=== PATIENT | male | born 1990 | race American Indian/Alaskan Native ===

== ENCOUNTER 2016-07-13 12:43 | Emergency (ER) | payer SELFPAY ==
[2016-07-13 12:55] VITALS: BP 149/75; PULSE 83; RESP 18; TEMP 97.9; O2SAT 100
--- NOTE | 2016-07-13 13:10 | ED PDOC ---
Upper Extremity Pain/Injury Time Seen by Provider: 07/13/16 13:05 Chief Complaint (Nursing): Finger,Hand,&Wrist Chief Complaint (Provider): finger injury History Per: Patient (26 y/o here for f/u of finger injury 06/15/2016. Patient had finger reduced at that time. Has no seen hand surgeon for evaluation of injury. Requests clearance to return to work.) Past Medical History Reviewed: Historical Data, Nursing Documentation, Vital Signs Vital Signs: Last Vital Signs Temp 97.9 F 07/13/16 12:52 Pulse 83 07/13/16 12:52 Resp 18 07/13/16 12:52 BP 149/75 07/13/16 12:52 Pulse Ox 100 07/13/16 12:52 - Medical History PMH: Bipolar Disorder - Family History Family History: States: Unknown Family Hx - Immunization History Hx Tetanus Toxoid Vaccination: No Hx Influenza Vaccination: No Hx Pneumococcal Vaccination: No - Home Medications Home Medications: Ambulatory Orders Medication Instructions Recorded Ibuprofen 800 mg PO TID #20 tab 08/06/15 oxyCODONE/Acetaminophen [Percocet 1 tab PO QID PRN #14 tab 08/06/15 5/325 mg Tab] Naproxen [Naprosyn] 500 mg PO Q12 PRN #20 tablet 06/15/16 - Allergies Allergies/Adverse Reactions: Allergies Allergy/AdvReac Type Severity Reaction Status Date / Time No Known Allergies Allergy Verified 07/13/15 03:43 Review of Systems ROS Statement: Except As Marked, All Systems Reviewed And Found Negative Physical Exam - Reviewed Nursing Documentation Reviewed: Yes Vital Signs Reviewed: Yes - Physical Exam Appears: Positive for: Well, Non-toxic, No Acute Distress Head Exam: Positive for: ATRAUMATIC, NORMAL INSPECTION, NORMOCEPHALIC Skin: Positive for: Normal Color, Warm, DRY Eye Exam: Positive for: EOMI, Normal appearance, PERRL ENT: Positive for: Normal ENT Inspection Neck: Positive for: Normal, Painless ROM Cardiovascular/Chest: Positive for: Regular Rate, Rhythm Respiratory: Positive for: CNT, Normal Breath Sounds Gastrointestinal/Abdominal: Positive for: Normal Exam, Bowel Sounds, Soft Back: Positive for: Normal Inspection Extremity: Positive for: Normal ROM, Other (?boutenniere deformity noted.) Neurologic/Psych: Positive for: Alert, Oriented - ECG O2 Sat by Pulse Oximetry: 100 - Progress ED Course And Treament: XRY: NO DISLOCATION/FX NOTED. DEFORMITY NOTED THIRD AND FOURTH DIGITS. PLACED IN FINGER SPLINT FOR ACUTELY INJURED DIGIT (3RD) ADVISED F/U WITH HAND SURGEON. Disposition - Clinical Impression Clinical Impression: Boutonniere deformity - Patient ED Disposition Is Patient to be Admitted: No - Disposition Referrals: Axel Greene MD [Staff Provider] - Disposition: Routine/Home Disposition Time: 13:36 Condition: FAIR Instructions: Tendon Rupture (ED), Finger Sprain (ED) Forms: [facility] ED School/Work Excuse
--- NOTE | 2016-07-13 14:32 | RAD ---
PROCEDURE: Left middle finger radiographs. HISTORY: finger injury COMPARISON: None. TECHNIQUE: AP radiograph of the left hand, as well as spot oblique and lateral images of left middle finger were obtained. FINDINGS: LEFT MIDDLE FINGER: Left middle finger normal, without fracture of focal lesion. Remainder of the left hand (as seen on the AP view) is grossly unremarkable. JOINTS: Normal. SOFT TISSUES: There is mild periarticular soft tissue swelling in the proximal interphalangeal joint of the 3rd digit. OTHER FINDINGS: None. IMPRESSION: No acute displaced fracture or dislocation. Mild periarticular soft tissue swelling in the proximal interphalangeal joint of the 3rd digit.
== END 2016-07-13 14:48 | disposition home or self-care (01) ==
LOC: H.ER 12:43
DX: M20.022 Boutonniere deformity of left finger(s) (principal)

== ENCOUNTER 2016-11-03 04:52 | Emergency (ER) | payer OTHER | END 2016-11-03 05:22 | disposition home or self-care (01) | LOC: H.EROB2 04:52 → H.ER 04:52 | DX: F19.10 Other psychoactive substance abuse, uncomplicated (principal); Z02.89 Encounter for other administrative examinations; Z00.8 Encounter for other general examination ==

== ENCOUNTER 2016-11-17 02:59 | Inpatient (IN) | payer OTHER ==
[2016-11-17 03:27] VITALS: O2SAT 100
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
[2016-11-17 04:44] LABS: BASO # 0.1 K/uL (0.0-0.2); BASO % 0.7 % (0.0-2.0); EOS % 0.1 % (0.0-4.0); HEMOGLOBIN 15.9 g/dL (12.0-18.0); LYMPH # 2.7 K/uL (1.0-4.3); MEAN CELL VOLUME 94.2 fl (80.0-94.0); MEAN CORPUSCULAR HEMOGLOBIN 32.2 pg (27.0-31.0); MEAN CORPUSCULAR HGB CONC 34.2 g/dL (33.0-37.0); MEAN PLATELET VOLUME 10.4 fl (7.2-11.7); MONO # 0.3 K/uL (0.0-0.8); MONO % 4.3 % (0.0-10.0); NEUT # 4.6 K/uL (1.8-7.0); NEUT % 59.9 % (50.0-75.0); RBC 4.95 Mil/uL (4.40-5.90); WHITE BLOOD COUNT 7.7 K/uL (4.8-10.8)
[2016-11-17 04:52] LABS: ALB/GLOB RATIO 1.4 (1.0-2.1); ALBUMIN 4.8 g/dL (3.5-5.0); ALT/SGPT 41 U/L (21-72); AST/SGOT 24 U/L (17-59); BLOOD UREA NITROGEN 10 mg/dl (9-20); CALCIUM 9.6 mg/dL (8.4-10.2); GFR AFRICAN-AMERICAN > 60; GFR NON-AFRICAN AMERICAN > 60
--- NOTE | 2016-11-17 08:56 | PCM.BM ---
Treatment Plan Problems - Problems identified on initial assessmt Altered Sleep Patterns Date Initiated: 11/17/16 Time Initiated: 16:05 Assessment reference: NA Status: Active Priority: 2 Hopelessnes/helplessness Date Initiated: 11/17/16 Time Initiated: 16:07 Assessment reference: NA Status: Active Priority: 1 Treatment assets and liabiliti Patient Assests: cooperative, motivated, self-reliant, physically healthy Patient Liabilities: substance abuse, legal issue, auditory impairment - Milieu Protocol Maintain good personal hygiene: daily Encourage regular showers, daily Remind patient to perform daily oral care, daily Assist patient to perform ADL's, every shift Encourage regular showers, every shift Remind patient to perform daily oral care, every shift Assist patient to perform ADL's Maintain personal safety: daily Educate patient to report safety concerns to staff, daily Monitor environment for contraband/sharps, every shift Educate patient to report safety concerns to staff, every shift Monitor environment for contraband/sharps Medication safety: Monitor for expected outcome, potential side effects: daily, Assess barriers to learning: daily, Assess readiness for medication education: daily Milieu Narrative: admit to 3np for safety and observation gather collateral information provide supportive therapy adjust medications- start risperdal for mood/psychosis disposition planning hospitalist consult Family Contact Family involvement: Family/SO is involved Family contact: Patient agrees to contact, Family has been contacted by patient , Telephone contact initiated by staff Family contact name: Sandra Jimenes Family contacted how many times per week?: 2 Family contact comment: [phone] Discharge/Continuing Care - Treatment Team Participation Patient/Family/SO Statement: admit to 3np for safety and observation gather collateral information provide supportive therapy adjust medications- start risperdal for mood/psychosis disposition planning hospitalist consult
[2016-11-17 09:10] LABS: BARBITURATES, UR NEGATIVE (NEGATIVE); BENZODIAZEPINES, UR POSITIVE (NEGATIVE); OPIATES, UR NEGATIVE (NEGATIVE); PHENCYCLIDINE, UR NEGATIVE (NEGATIVE)
--- NOTE | 2016-11-17 09:37 | CARD ---
APPROVED REPORT EKG Measurement Heart [id number] HI [id number] <Conclusion> Normal sinus rhythm with sinus arrhythmia Voltage criteria for left ventricular hypertrophy Early repolarization Abnormal ECG
[2016-11-17] MEDS ORDERED: Alum-Mag Hydrox-Simethicone Susp (30 mL) PO PRN (12:18)
[2016-11-17] MEDS ORDERED: Magnesium Hydroxide Susp 30 ml UD PO PRN (12:18)
[2016-11-17] MEDS ORDERED: DiphenhydrAMINE 50 mg/ml Inj IM PRN (12:18)
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
--- NOTE | 2016-11-18 13:44 | PCM.PYCHPN ---
Psychiatric Progress Note - Psychiatric Progress Note Patient seen today, length of contact: in treatment team Patient Chief Complaint: i am tired Problems Identified/Issues Discussed: pt slept well with seroquel. no c/o voices today. asking to start and antidepressant. outside of feeling tired, no c/o side effects with meds Medication Change: Yes Medical Record Reviewed: Yes Mental Status Examination - Cognitive Function Orientation: Person, Place, Situation, Time Memory: Intact Attention: WNL Concentration: Poor Association: WNL Fund of Knowledge: WNL Decription of patient's judgement and insights: fair - Mood Mood: Depressed - Affect Affect: Blunted - Speech Speech: Soft - Formal Thought Process Formal Thought Process: Paranoia, Loosening of associations Psychotic Thoughts and Behaviors: denies any a/v hallucinations - Suicidal Ideation Suicidal Ideation: No - Homicidal Ideation Homicidal Ideation: No Goal/Treatment Plan - Goal/Treatment Plan Need for Continued Stay: Remain at risks for inpatient hospitalization, Severe functional impairment Progress Toward Problem(s) and Goals/Treatment Plan: psychosis unspecified, mdma abuse zoloft for depression seroquel for psychosis/sleep encourage participation in groups disposition planning Estimated Date of D/C: 11/22/16
--- NOTE | 2016-11-19 12:05 | PCM.PYCHPN ---
Psychiatric Progress Note - Psychiatric Progress Note Patient seen today, length of contact: discussed with team Patient Chief Complaint: when can i go Problems Identified/Issues Discussed: pt reports he's hearing voices still at night, sleep not as good last night. more visibile in the am, not sedated during the day. he is asking about leaving the hospital. Medication Change: Yes Medical Record Reviewed: Yes Mental Status Examination - Cognitive Function Orientation: Person, Place, Situation, Time Memory: Intact Attention: WNL Concentration: Poor Association: WNL Fund of Knowledge: WNL Decription of patient's judgement and insights: fair - Mood Mood: Depressed - Affect Affect: Blunted - Speech Speech: Soft - Formal Thought Process Formal Thought Process: Paranoia, Loosening of associations Psychotic Thoughts and Behaviors: denies any a/v hallucinations - Suicidal Ideation Suicidal Ideation: No - Homicidal Ideation Homicidal Ideation: No Goal/Treatment Plan - Goal/Treatment Plan Need for Continued Stay: Remain at risks for inpatient hospitalization, Severe functional impairment Progress Toward Problem(s) and Goals/Treatment Plan: psychosis unspecified, mdma abuse zoloft for depression seroquel for psychosis/sleep- increase to 100mg hs encourage participation in groups disposition planning Estimated Date of D/C: 11/22/16
--- NOTE | 2016-11-20 11:24 | PCM.PYCHPN ---
Psychiatric Progress Note - Psychiatric Progress Note Patient seen today, length of contact: discussed with team Patient Chief Complaint: i am doing better Problems Identified/Issues Discussed: pt denies any auditory hallucinations. has improved sleep. denies medication side effects. visible in the milieu. Medication Change: No Medical Record Reviewed: Yes Mental Status Examination - Cognitive Function Orientation: Person, Place, Situation, Time Memory: Intact Attention: WNL Concentration: Poor Association: WNL Fund of Knowledge: WNL Decription of patient's judgement and insights: fair - Mood Mood: Depressed - Affect Affect: Blunted - Speech Speech: Soft - Formal Thought Process Formal Thought Process: Paranoia, Loosening of associations Psychotic Thoughts and Behaviors: denies any a/v hallucinations - Suicidal Ideation Suicidal Ideation: No - Homicidal Ideation Homicidal Ideation: No Goal/Treatment Plan - Goal/Treatment Plan Need for Continued Stay: Remain at risks for inpatient hospitalization, Severe functional impairment Progress Toward Problem(s) and Goals/Treatment Plan: psychosis unspecified, mdma abuse seroquel for psychosis/sleep- continue 100mg hs encourage participation in groups disposition planning Estimated Date of D/C: 11/22/16
[2016-11-21 11:03] VITALS: RESP 18
--- NOTE | 2016-11-21 12:32 | PCM.PYCHPN ---
Psychiatric Progress Note - Psychiatric Progress Note Patient seen today, length of contact: discussed with team Patient Chief Complaint: can i go doc Problems Identified/Issues Discussed: pt denies any auditory hallucinations. still with improved sleep. denies medication side effects. visible in the milieu and laughing/joking with peers. Medication Change: No Medical Record Reviewed: Yes Mental Status Examination - Cognitive Function Orientation: Person, Place, Situation, Time Memory: Intact Attention: WNL Concentration: WNL Association: WN Fund of Knowledge: [facility] Decription of patient's judgement and insights: fair - Mood Mood: Neutral - Affect Affect: Broad - Speech Speech: Appropriate - Formal Thought Process Formal Thought Process: No Impairment Psychotic Thoughts and Behaviors: denies any a/v hallucinations - Suicidal Ideation Suicidal Ideation: No - Homicidal Ideation Homicidal Ideation: No Goal/Treatment Plan - Goal/Treatment Plan Need for Continued Stay: Remain at risks for inpatient hospitalization, Severe functional impairment Progress Toward Problem(s) and Goals/Treatment Plan: psychosis unspecified, mdma abuse seroquel for psychosis/sleep- continue 100mg hs encourage participation in groups disposition planning Estimated Date of D/C: 11/22/16
[2016-11-22 09:05] VITALS: BP 128/58; PULSE 58; TEMP 97.2
--- NOTE | 2016-11-22 14:49 | PCM.PYCHDC ---
Mental Status Examination - Mental Status Examination Orientation: Person, Place, Situation, Time Memory: Intact Mood: Neutral Affect: Broad Speech: Appropriate Attention: WNL Concentration: WNL Association: WNL Fund of Knowledge: WNL Formal Thought Process: No Impairment Description of patient's judgement and insight: fair Psychotic Thoughts and Behaviors: denies any a/v hallucinations and thoughts are clear Suicidal Ideation: No Current Homicidal Ideation?: No Plan: pt denies any si/hi Discharge Summary - Discharge Note Reason for Hospitalization: pt c/o using mdma and hearing voices Psychiatric History (includes Medical, Family, Personal Hx): no previous history of treatment Consultations:: List each consultation separately and include: 1. Reason for request. 2. Findings. 3. Follow-up Consultations: seen by hospitalist Summary of Hospital Course include:: 1. Description of specific treatment plan utilized for patients during their course of treatmen. 2. Summarize the time- course for resolution of acute symptoms and/or regressed behaviors. 3. Describe issues identified and worked on during hospitalization. 4. Describe medication utilized. 5. Describe medical problems identified and treated. 6. Reassessment of suicide risk Summary of Hospital Course: 26 yo male, lliving in [place] with mother. 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 pt was on [employer] live chat and told his followers he was jumping into the river to kill himself. pt's cousin saw and came and jumped into the river to help pt. pt states he has been depressed and suicidal because of all the deaths of his friends in [facility] he states he uses a lot of silvia and cigarettes. he reports he used silvia day of admission. he reports he hears the voices of his friends and sees "ghosts" he report he cannot sleep at night and uses alcohol to help himself sleep. he reports he frequently thinks of suicide, but now he does not want to kill himself as he feels safe in the hospital. pt states he feels overwhelmed when he is in the community and around his friends or thinking about all the friends who have . pt was admitted to [facility] and oriented to the unit. pt was placed on routine safety protocols. pt was started on seroquel to target his psychotic symptoms. he tolerated the medications and had a resolution of his symptoms. he was attending groups and with a bright affect and with logical thoughts. he was agreeing to follow up with outpt providers. he was denying any suicidal or homicidal thoughts at the time of discharge. - Final Diagnosis (DSM 5) Condition upon Discharge: FAIR DSM 5: mdma abuse psychotic disorder unspecified Disposition: HOME/ ROUTINE Follow-up Treatment Plan: take medications as prescribed do not use alcohol, tobacco or other illicit substances call 911 if any suicidal or homicidal thoughts attend aa/na meetings daily follow up with aftercare appointments as directed. Prescriptions/Medication Reconciliation: Nicotine 21 mg/24 hr [Nicoderm Cq] 1 patch TD DAILY #30 patch QUEtiapine [Seroquel] 100 mg PO HS #15 tab - Smoking Cessation Smoking Cessation Medication prescribed: Yes - Antipsychotic Medications Pt discharged on 2 or more routine antipsychotic medications: No
== END 2016-11-22 12:40 | disposition home or self-care (01) | DRG 430 ==
LOC: H.ER 02:59 → H.ERHOLD 06:12 → H.PSYCH 08:45
PROVIDERS: ADMIT Psychiatry & Neurology Psychiatry; ATTEND Psychiatry & Neurology Psychiatry
PROC: GZHZZZZ Group Psychotherapy (ICD-10-PCS; principal; 2016-11-17)
PROC: GZ58ZZZ Individual Psychotherapy, Cognitive-Behavioral (ICD-10-PCS; 2016-11-17)
DX: F25.9 Schizoaffective disorder, unspecified (principal); R45.851 Suicidal ideations; F23 Brief psychotic disorder; F16.10 Hallucinogen abuse, uncomplicated; F10.129 Alcohol abuse with intoxication, unspecified; Y90.6 Blood alcohol level of 120-199 mg/100 ml; F17.210 Nicotine dependence, cigarettes, uncomplicated

== ENCOUNTER 2016-12-26 04:18 | Emergency (ER) | payer OTHER ==
[2016-12-26 04:32] VITALS: BMI 23.7
--- NOTE | 2016-12-26 04:43 | ED PDOC ---
HPI: Psych/Substance Abuse Time Seen by Provider: 12/26/16 04:24 Chief Complaint (Provider): "Nobody cares about me I want to " Modifying Factor(s): Alcohol, Marijuana Additional Complaint(s): Jaiden Jimenes, a 26 year old male, presents to the ED on his own stating "nobody cares about me, I want to ". Per family member, the [place] the [place] alcohol. Patient unable to participate in history taking at this time. Past Medical History Reviewed: Historical Data, Nursing Documentation, Vital Signs - Medical History PMH: Bipolar Disorder, Depression Denies: Diabetes, Hepatitis, HIV, HTN, Chronic Kidney Disease, Seizures, Sexually Transmitted Disease - Surgical History Surgical History: No Surg Hx - Family History Family History: States: Unknown Family Hx - Immunization History Hx Tetanus Toxoid Vaccination: No Hx Influenza Vaccination: No Hx Pneumococcal Vaccination: No - Home Medications Home Medications: Ambulatory Orders Medication Instructions Recorded Nicotine 21 mg/24 hr [Nicoderm Cq] 1 patch TD DAILY #30 patch 11/22/16 QUEtiapine [Seroquel] 100 mg PO HS #15 tab 11/22/16 - Allergies Allergies/Adverse Reactions: Allergies Allergy/AdvReac Type Severity Reaction Status Date / Time No Known Allergies Allergy Verified 12/26/16 04:46 Review of Systems ROS Statement: Except As Marked, All Systems Reviewed And Found Negative Psych: Negative for: Suicidal ideation Physical Exam - Reviewed Nursing Documentation Reviewed: Yes Vital Signs Reviewed: Yes - Physical Exam Appears: Positive for: Non-toxic, Uncomfortable Head Exam: Positive for: ATRAUMATIC, NORMAL INSPECTION, NORMOCEPHALIC Skin: Positive for: Normal Color, Warm, Dry. Negative for: Rash Eye Exam: Positive for: Normal appearance, EOMI, PERRL. Negative for: Nystagmus ENT: Positive for: Normal ENT Inspection Neck: Positive for: Normal, Painless ROM, Supple Cardiovascular/Chest: Positive for: Regular Rate, Rhythm, Chest Non Tender. Negative for: Tachycardia Respiratory: Positive for: Normal Breath Sounds. Negative for: Rales, Rhonchi, Wheezing, Respiratory Distress Gastrointestinal/Abdominal: Positive for: Normal Exam, Bowel Sounds, Soft. Negative for: Tenderness, Guarding, Rebound Back: Positive for: Normal Inspection. Negative for: L CVA Tenderness, R CVA Tenderness Extremity: Positive for: Normal ROM. Negative for: Tenderness, Deformity, Swelling Neurologic/Psych: Positive for: Alert, Oriented Medical Decision Making Medical Decision Makin Initial Impression: Drug and Alcohol Abuse Initial Plan: * Alcohol Serum * Drug Screen * Ativan 2mg IM * Haldol 5mg IM * 1:1 obs * Accucheck * Restraint * Reevaluation Scribe~Attestation Documented by Chelo Dill acting as a scribe for Maximo Padilla MD. Provider~Attestation: All medical record entries made by the Scribe were at my direction and personally dictated by me. I have reviewed the chart and agree that the record accurately reflects my personal performance of the history, physical exam, medical decision making, and the department course for this patient. I have also personally directed, reviewed, and agree with the discharge instructions and disposition. ED OBSERVATION Date of observation admission: 12/26/16 Time of observation admission: 16:35 - Observation admission statement Patient is being placed in observation because:: Pending sobriety. - Goals of Observation Goals of observation are:: sobriety. - Progress Note Progress Note: 12/26/16 06:07 Patient is resting comfortably. 12/26/16 06:51 Pt. resting. Will sign out to day team pending sobriety and crisis eval. Disposition - Clinical Impression Clinical Impression: Alcohol abuse with intoxication, Substance abuse - Disposition Disposition: Transfer of Care Disposition Time: 07:00 Condition: STABLE Patient Signed Over To: Jennie Wright Handoff Comments: pending sobriety and crisis eval
--- NOTE | 2016-12-26 07:20 | ED PDOC ---
- ECG O2 Sat by Pulse Oximetry: 98 Medical Decision Making Medical Decision Makin:00 Patient signed over to me by Dr. Maximo Padilla MD pending drug screen, sobriety, and crisis evaluation. Scribe Attestation: Documented by Lori Mendoza, acting as a scribe for Jennie Wright MD. Provider Scribe Attestation: All medical record entries made by the Scribe were at my direction and personally dictated by me. I have reviewed the chart and agree that the record accurately reflects my personal performance of the history, physical exam, medical decision making, and the department course for this patient. I have also personally directed, reviewed, and agree with the discharge instructions and disposition. 11.15 a - cleared by psych for outpatient followup. Disposition Doctor Will See Patient In The: Office Counseled Patient/Family Regarding: Diagnosis, Need For Followup, Rx Given - Clinical Impression Clinical Impression: Alcohol abuse with intoxication, Substance abuse - POA Present On Arrival: None - Disposition Referrals: [facility] [Outside] [facility] [Outside] Disposition: Routine/Home Disposition Time: 11:15 Condition: STABLE Additional Instructions: FOR MENTAL HEALTH ASSISTANCE FOLLOW UP AT: [facility] [address] [place] [address] FOR SUBSTANCE ABUSE SERVICES FOLLOW UP AT: [facility] [phone] Instructions: Polysubstance Abuse (ED) Forms: [employer] ([employer])
[2016-12-26 11:56] VITALS: BP 117/83; PULSE 64; RESP 15; TEMP 98.3; O2SAT 100
== END 2016-12-26 11:56 | disposition home or self-care (01) ==
LOC: H.ER 04:18
DX: F10.129 Alcohol abuse with intoxication, unspecified (principal); F19.10 Other psychoactive substance abuse, uncomplicated; F31.9 Bipolar disorder, unspecified
CPT/HCPCS: 80320; 82948; 96372; 99285; J1630; J2060

== ENCOUNTER 2017-01-07 03:24 | Emergency (ER) | payer OTHER ==
[2017-01-07 03:37] VITALS: BMI 27.1
[2017-01-07 03:40] VITALS: BP 135/90; PULSE 100; RESP 18; TEMP 98; O2SAT 98
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
== END 2017-01-07 04:34 | disposition home or self-care (01) ==
LOC: H.ER 03:24
DX: F43.20 Adjustment disorder, unspecified (principal)

== ENCOUNTER 2017-02-02 18:02 | Observation (INO) | payer OTHER ==
[2017-02-02 18:02] VITALS: BMI 27.1
--- NOTE | 2017-02-02 18:47 | ED PDOC ---
HPI: Male Pain Time Seen by Provider: 02/02/17 18:23 Chief Complaint (Nursing): Male Genitourinary Chief Complaint (Provider): penile swelling History Per: Patient History/Exam Limitations: no limitations Onset/Duration Of Symptoms: Sudden Onset Current Symptoms Are (Timing): Still Present Quality Of Discomfort: Pressure Associated Symptoms: denies: Urinary Symptoms Alleviating Factors: None Additional Complaint(s): 26yo male states received oral sex yesterday, today awoke with swelling to the ventral portion of the penis. Denies pain to area, discharge, ulcerations or concern for STD. Patient is uncircumscised, no prior issues w foreskin or retracting foreskin. Past Medical History Reviewed: Historical Data, Nursing Documentation, Vital Signs Vital Signs: Last Vital Signs Temp 97.0 F L 02/02/17 18:07 Pulse 110 H 02/02/17 18:07 Resp 16 02/02/17 18:07 BP 132/75 02/02/17 18:07 Pulse Ox 99 02/02/17 18:07 - Medical History PMH: Bipolar Disorder, Depression Denies: Diabetes, Hepatitis, HIV, HTN, Chronic Kidney Disease, Seizures, Sexually Transmitted Disease - Family History Family History: States: Unknown Family Hx - Immunization History Hx Tetanus Toxoid Vaccination: No Hx Influenza Vaccination: No Hx Pneumococcal Vaccination: No - Home Medications Home Medications: Ambulatory Orders Medication Instructions Recorded Nicotine 21 mg/24 hr [Nicoderm Cq] 1 patch TD DAILY #30 patch 11/22/16 QUEtiapine [Seroquel] 100 mg PO HS #15 tab 11/22/16 - Allergies Allergies/Adverse Reactions: Allergies Allergy/AdvReac Type Severity Reaction Status Date / Time No Known Allergies Allergy Verified 01/07/17 03:37 Review of Systems ROS Statement: Except As Marked, All Systems Reviewed And Found Negative Constitutional: Negative for: Fever, Chills Cardiovascular: Negative for: Chest Pain, Palpitations Gastrointestinal: Negative for: Nausea, Vomiting Genitourinary Male: Positive for: Other (penile swelling). Negative for: Dysuria, Frequency, Incontinence, Scrotal Pain, Rash, Penile Pain Musculoskeletal: Negative for: Neck Pain Skin: Negative for: Rash, Lesions, Jaundice Neurological: Negative for: Weakness, Numbness Physical Exam - Reviewed Nursing Documentation Reviewed: Yes Vital Signs Reviewed: Yes - Physical Exam Appears: Positive for: Well, Non-toxic, No Acute Distress Head Exam: Positive for: ATRAUMATIC Skin: Positive for: Normal Color, Warm, DRY Cardiovascular/Chest: Negative for: Tachycardia Respiratory: Negative for: Respiratory Distress Gastrointestinal/Abdominal: Positive for: Soft Male Genital Exam: Positive for: other (penile foreskin edema to vental portion , +able to advance foreskin over glans and fully retract foreskin, nontender, no discharge at penile meatus). Negative for: bleeding, erythema, lesions, scrotum tenderness (R), scrotum tenderness (L) Back: Positive for: Normal Inspection Extremity: Positive for: Normal ROM Neurologic/Psych: Positive for: Alert, Oriented. Negative for: Motor/Sensory Deficits - ECG O2 Sat by Pulse Oximetry: 99 Medical Decision Making Medical Decision Making: sugar placed on foreskin for osmotic therapy of likely partial paraphimosis. Ice also applied to area. Explained definitive therapy following would be circumcision to prevent recurrence. Disposition - Clinical Impression Clinical Impression: Foreskin swelling - Disposition Disposition Time: 18:51 Forms: [employer] ([place]) Patient Signed Over To: Tristan Kirk Handoff Comments: pending re-eval of penis, dispo
[2017-02-02] MEDS ORDERED: Piperacill/Tazo 3.375gm in Dex 3.375 GM/50 ML BAG IVPB STA (20:32)
--- NOTE | 2017-02-02 20:35 | ED PDOC ---
- Laboratory Results Result Diagrams: 02/02/17 20:57 02/02/17 20:57 - ECG O2 Sat by Pulse Oximetry: 99 (RA) Pulse Ox Interpretation: Normal Medical Decision Making Medical Decision Making: Time: 1899 --Patient was endorsed to provider by Dr. Froilan Arce III. Pending re- evaluation and final disposition. Time: 2014 --Upon re-evaluation, patient shows no improvement with swelling. --Discussed case with Dr. Vazquez who advised to admit patient for IV antibiotic treatment and further evaluation. --Dr. Ramsey, hospitalist was also informed of case. Clinical Impression: Pineal foreskin cellulitis Scribe Attestation: Documented by Yee Cardona, acting as a scribe for Tristan Kirk MD. Provider Scribe Attestation: All medical record entries made by the Scribe were at my direction and personally dictated by me. I have reviewed the chart and agree that the record accurately reflects my personal performance of the history, physical exam, medical decision making, and the department course for this patient. I have also personally directed, reviewed, and agree with the discharge instructions and disposition. Disposition Discussed With DrAlexandra: Eriberto Ramsey (Dr Vazquez) - Clinical Impression Clinical Impression: Foreskin swelling, Cellulitis - POA Present On Arrival: None - Disposition Disposition: Hospitalized as Observation Patient Disposition Time: 22:00 Condition: STABLE
[2017-02-02 21:02] LABS: BASO # 0.2 K/uL (0.0-0.2); BASO % 2.2 % (0.0-2.0); EOS # 0.1 K/uL (0.0-0.7); EOS % 0.8 % (0.0-4.0); HEMATOCRIT 45.4 % (35.0-51.0); LYMPH # 2.3 K/uL (1.0-4.3); LYMPH % 31.9 % (20.0-40.0); MEAN CELL VOLUME 91.8 fl (80.0-94.0); MEAN CORPUSCULAR HEMOGLOBIN 31.1 pg (27.0-31.0); MEAN CORPUSCULAR HGB CONC 33.8 g/dL (33.0-37.0); MEAN PLATELET VOLUME 9.6 fl (7.2-11.7); MONO # 0.6 K/uL (0.0-0.8); MONO % 8.7 % (0.0-10.0); NEUT # 4.1 K/uL (1.8-7.0); NEUT % 56.4 % (50.0-75.0); RED CELL DISTRIBUTION WIDTH 13.3 % (11.5-14.5); WHITE BLOOD COUNT 7.3 K/uL (4.8-10.8)
[2017-02-02 21:12] LABS: RBC URINE 5 /hpf (0-3); URINE BACTERIA RARE (<OCC); URINE BILIRUBIN NEGATIVE (NEGATIVE); URINE BLOOD NEGATIVE (NEGATIVE); URINE COLOR YELLOW (YELLOW); URINE GLUCOSE (UA) NEG (Normal); URINE KETONE NEGATIVE (NEGATIVE); URINE LEUKOCYTE ESTERASE NEG Leu/uL (Negative); URINE PROTEIN 100 mg/dL (NEGATIVE); URINE UROBILINOGEN 0.2-1.0 mg/dL (0.2-1.0); WBC URINE 2 /hpf (0-5)
[2017-02-02 21:21] LABS: BLOOD UREA NITROGEN 13 mg/dl (9-20); CALCIUM 9.8 mg/dL (8.4-10.2); CARBON DIOXIDE 28 mmol/L (22-30); CHLORIDE 103 mmol/L (98-107); GFR AFRICAN-AMERICAN > 60; GLUCOSE,RANDOM 84 mg/dL (75-110); POTASSIUM 3.9 MMOL/L (3.6-5.0); SODIUM 142 mmol/l (132-148)
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
[2017-02-03 00:22] VITALS: RESP 20
[2017-02-03] MEDS: Piperacill/Tazo 3.375gm in Dex 3.375 GM/50 ML BAG IVPB SCH ×2 (03:48→10:33)
[2017-02-03] MEDS ORDERED: Piperacillin/Tazobact 3.375 GM in Sodium Chloride 0.9% 100 ML IVPB SCH (04:00)
[2017-02-03 08:08] VITALS: BP 144/84; PULSE 51; TEMP 97.6; O2SAT 100
[2017-02-03] MEDS ORDERED: Venlafaxine 75 mg ER Cap PO SCH (09:00)
--- NOTE | 2017-02-03 13:00 | CP.PCM.DIS ---
Provider - Provider Date of Admission: 02/02/17 21:12 Attending physician: Eriberto Ramsey Primary care physician: none Consults: Urology consult 02/03/17 00:42 Social Work Referral Routine Comment: protocol Physician Instructions: Reason For Exam: smoking cessation Time Spent in preparation of Discharge (in minutes): 15 Hospital Course - Lab Results Lab Results: Most Recent Lab Values WBC 7.3 K/uL (4.8-10.8) 02/02/17 20:57 RBC 4.94 Mil/uL (4.40-5.90) 02/02/17 20:57 Hgb 15.3 g/dL (12.0-18.0) 02/02/17 20:57 Hct 45.4 % (35.0-51.0) 02/02/17 20:57 MCV 91.8 fl (80.0-94.0) D 02/02/17 20:57 MCH 31.1 pg (27.0-31.0) H 02/02/17 20:57 MCHC 33.8 g/dL (33.0-37.0) 02/02/17 20:57 RDW 13.3 % (11.5-14.5) 02/02/17 20:57 Plt Count 171 K/uL (130-400) 02/02/17 20:57 MPV 9.6 fl (7.2-11.7) 02/02/17 20:57 Neut % (Auto) 56.4 % (50.0-75.0) 02/02/17 20:57 Lymph % (Auto) 31.9 % (20.0-40.0) 02/02/17 20:57 [place] % (Auto) 8.7 % (0.0-10.0) 02/02/17 20:57 Eos % (Auto) 0.8 % (0.0-4.0) 02/02/17 20:57 Baso % (Auto) 2.2 % (0.0-2.0) H 02/02/17 20:57 Neut # 4.1 K/uL (1.8-7.0) 02/02/17 20:57 Lymph # 2.3 K/uL (1.0-4.3) 02/02/17 20:57 [place] # 0.6 K/uL (0.0-0.8) 02/02/17 20:57 Eos # 0.1 K/uL (0.0-0.7) 02/02/17 20:57 Baso # 0.2 K/uL (0.0-0.2) 02/02/17 20:57 Sodium 142 mmol/l (132-148) 02/02/17 20:57 Potassium 3.9 MMOL/L (3.6-5.0) 02/02/17 20:57 Chloride 103 mmol/L (98-107) 02/02/17 20:57 Carbon Dioxide 28 mmol/L (22-30) 02/02/17 20:57 Anion Gap 15 (10-20) 02/02/17 20:57 BUN 13 mg/dl (9-20) 02/02/17 20:57 Creatinine 0.9 mg/dL (0.8-1.5) 02/02/17 20:57 Est GFR ( Amer) > 60 02/02/17 20:57 Est GFR (Non-Af Amer) > 60 02/02/17 20:57 Random Glucose 84 mg/dL (75-110) 02/02/17 20:57 Lactic Acid 0.7 MMOL/L (0.7-2.1) 02/02/17 20:57 Calcium 9.8 mg/dL (8.4-10.2) 02/02/17 20:57 Urine Color Yellow (YELLOW) 02/02/17 20:57 Urine Clarity Cloudy (Clear) 02/02/17 20:57 Urine pH 8.0 (5.0-8.0) 02/02/17 20:57 Ur Specific [place] 1.027 (1.003-1.030) 02/02/17 20:57 Urine Protein 100 mg/dL (NEGATIVE) 02/02/17 20:57 Urine Glucose (UA) Neg mg/dL (Normal) 02/02/17 20:57 Urine Ketones Negative mg/dL (NEGATIVE) 02/02/17 20:57 Urine Blood Negative (NEGATIVE) 02/02/17 20:57 Urine Nitrate Negative (NEGATIVE) 02/02/17 20:57 Urine Bilirubin Negative (NEGATIVE) 02/02/17 20:57 Urine Urobilinogen 0.2-1.0 mg/dL (0.2-1.0) 02/02/17 20:57 Ur Leukocyte Esterase Neg [place]/uL (Negative) 02/02/17 20:57 Urine RBC (Auto) 5 /hpf (0-3) H 02/02/17 20:57 Urine Microscopic WBC 2 /hpf (0-5) 02/02/17 20:57 Urine Bacteria Rare (<OCC) 02/02/17 20:57 - Hospital Course Hospital Course: 26 years old male came in after receiving Oral Sex one day ago and woke up with swelling to the ventral portion of the penis with no significant pain. He referred no Discharge, dysuria, urinary frequency, no fever nor abdominal pains. He is uncircumcised but because of the swelling the foreskin which is in retraction cannot be extended. Patient was placed under observation in med/surg and urology was consulted. He was started on IV zosyn empirically . Elevation of penis with cold compresses applied with improvement of swelling and paraphymosis resolved Patient to be discharged home in stable conditions. 1. Cellulitis of the Prepuce ruled out 2.Mild Paraphimosos of the Penile foreskin urology consulted resolved 3. Depression continue Effixer/ Seroquel 4. Alcohol abuse Thiamine, folic Acid Discharge Exam - Head Exam Head Exam: ATRAUMATIC, NORMAL INSPECTION, NORMOCEPHALIC - Eye Exam Eye Exam: EOMI, Normal appearance, PERRL Pupil Exam: NORMAL ACCOMODATION - ENT Exam ENT Exam: Mucous Membranes Moist, Normal Exam - Neck Exam Neck exam: Full Rom, Normal Inspection - Respiratory Exam Respiratory Exam: Clear to PA & Lateral, NORMAL BREATHING PATTERN. absent: Rales, Rhonchi, Wheezes - Cardiovascular Exam Cardiovascular Exam: REGULAR RHYTHM, RRR, +S1, +S2. absent: JVD - GI/Abdominal Exam GI & Abdominal Exam: Normal Bowel Sounds, Soft. absent: Distended, Guarding, Rebound, Tenderness - Rectal Exam Rectal Exam: Deferred - Exam Exam: absent: Circumcision, Scrotal Swelling, Testicular Tenderness - Extremities Exam Extremities exam: normal capillary refill, normal inspection, pedal pulses present - Back Exam Back exam: NORMAL INSPECTION. absent: muscle spasm, tenderness - Neurological Exam Neurological exam: Alert, CN II-XII Intact, Oriented x3, Reflexes Normal - Psychiatric Exam Psychiatric exam: Normal Affect, Normal Mood - Skin Skin Exam: Abrasion (left elbow), Dry, Normal Color, Warm Discharge Plan - Discharge Medications Prescriptions: Mupirocin 2% Ointment [Bactroban Ointment] 1 appl TP TID #1 tube - Follow Up Plan Condition: STABLE Disposition: HOME/ ROUTINE Patient education suggested?: Yes Instructions: Phimosis (ED) Additional Instructions: Follow up with Dr Vazquez this Tuesday. Return for any worsening or inability to retract foreskin to urinate. Continue to ice at home Referrals: Roger Vazquez MD [Medical Doctor] -
[2017-02-03] MEDS ORDERED: Bacitracin OINT 15GM TOP SCH (13:15)
[2017-02-03] MEDS: Enoxaparin 40 mg Syringe SC SCH ×2 (13:31→13:40)
== END 2017-02-03 15:20 | disposition home or self-care (01) ==
LOC: H.ER 18:02 → H.ERHOLD 21:12 → H.MEDSURG1 22:06
PROVIDERS: ADMIT Internal Medicine; ATTEND Internal Medicine
DX: N47.2 Paraphimosis (principal); F32.9 Major depressive disorder, single episode, unspecified; F10.10 Alcohol abuse, uncomplicated; F17.200 Nicotine dependence, unspecified, uncomplicated
CPT/HCPCS: 80048; 81003; 83605; 85025; 87040; 99284; G0378; J1885; J2543

== ENCOUNTER 2017-03-10 00:28 | Emergency (ER) | payer SELFPAY ==
[2017-03-10 00:29] VITALS: BMI 27.1
[2017-03-10 00:54] VITALS: O2SAT 98
--- NOTE | 2017-03-10 01:17 | ED PDOC ---
HPI: Psych/Substance Abuse Time Seen by Provider: 03/10/17 00:42 Chief Complaint (Nursing): Psychiatric Evaluation Chief Complaint (Provider): Psychiatric Evaluation History Per: Patient History/Exam Limitations: no limitations Onset/Duration Of Symptoms: Days (x1) Current Symptoms Are (Timing): Still Present Additional Complaint(s): Jaiden Jimenes is a 26 y/o male with a past medical history of substance abuse and psychotic disorder who was brought in by HPD after he was extremely agitated and aggressive. Patient is well known to this provider for multiple ED visits. Patient is requesting inpatient admission to psychiatric unit. PMD: Non-[facility] Provider Past Medical History Reviewed: Historical Data, Nursing Documentation, Vital Signs Vital Signs: Last Vital Signs Temp 98 F 03/10/17 00:49 Pulse 116 H 03/10/17 00:49 Resp 16 03/10/17 00:49 BP 117/77 03/10/17 00:49 Pulse Ox 98 03/10/17 00:49 - Medical History PMH: Bipolar Disorder, Depression Denies: Diabetes, Hepatitis, HIV, HTN, Chronic Kidney Disease, Seizures, Sexually Transmitted Disease - Family History Family History: States: Unknown Family Hx - Social History Current smoker - smoking cessation education provided: Yes (Heavy smoker) Alcohol: Other (A few days per week) Drugs: Cannabis, Methamphetamine (MDMA), Other (PCP) - Immunization History Hx Tetanus Toxoid Vaccination: No Hx Influenza Vaccination: No Hx Pneumococcal Vaccination: No - Home Medications Home Medications: Ambulatory Orders Medication Instructions Recorded QUEtiapine [Seroquel] 100 mg PO HS #15 tab 11/22/16 Mupirocin 2% Ointment [Bactroban 1 appl TP TID #1 tube 02/02/17 Ointment] Venlafaxine [Effexor-XR] 75 mg PO DAILY 02/02/17 - Allergies Allergies/Adverse Reactions: Allergies Allergy/AdvReac Type Severity Reaction Status Date / Time No Known Allergies Allergy Verified 02/02/17 20:41 Review of Systems ROS Statement: Except As Marked, All Systems Reviewed And Found Negative Psych: Positive for: Other (Aggression) Physical Exam - Reviewed Nursing Documentation Reviewed: Yes Vital Signs Reviewed: Yes - Physical Exam Appears: Positive for: Well, Non-toxic, No Acute Distress Head Exam: Positive for: ATRAUMATIC, NORMAL INSPECTION, NORMOCEPHALIC Skin: Positive for: Normal Color, Warm, Dry Eye Exam: Positive for: EOMI, Normal appearance, PERRL Neck: Positive for: Normal, Painless ROM, Supple Cardiovascular/Chest: Positive for: Regular Rate, Rhythm. Negative for: Murmur Respiratory: Positive for: Normal Breath Sounds. Negative for: Respiratory Distress Gastrointestinal/Abdominal: Positive for: Normal Exam, Bowel Sounds, Soft. Negative for: Tenderness Back: Positive for: Normal Inspection. Negative for: L CVA Tenderness, R CVA Tenderness, Vertebral Tenderness Extremity: Positive for: Normal ROM. Negative for: Pedal Edema, Deformity Neurologic/Psych: Positive for: Alert, Oriented. Negative for: Motor/Sensory Deficits - Laboratory Results Result Diagrams: 03/10/17 01:15 03/10/17 01:15 - ECG O2 Sat by Pulse Oximetry: 98 (RA) Pulse Ox Interpretation: Normal Medical Decision Making Medical Decision Making: Time: 01:04 Initial Impression: 26 y/o male brought in for crisis evaluation Plan: --Alcohol serum --CMP --Drug screen, urine --Crisis evaluation --CBC w/ differential --Accucheck --Reevaluation Time: 02:25 Clinical Impression: Alcohol induced mood disorder, substance abuse Plan: --Labs reviewed and no clinically significant abnormalities were found. Patient was evaluated by crisis and is psychiatrically and medically stable for discharge. Counseling was provided and all questions were answered regarding diagnosis. There is agreement to discharge plan. Return if symptoms persist or worsen. Scribe Attestation: Documented by Virgil Hale acting as a scribe for Tristan Kirk MD. MD Jimibe Attestation: All medical record entries made by the Scribe were at my direction and personally dictated by me. I have reviewed the chart and agree that the record accurately reflects my personal performance of the history, physical exam, medical decision making, and the department course for this patient. I have also personally directed, reviewed, and agree with the discharge instructions and disposition. Disposition - Clinical Impression Clinical Impression: Alcohol-induced mood disorder, Substance abuse - Patient ED Disposition Is Patient to be Admitted: No Counseled Patient/Family Regarding: Studies Performed, Diagnosis - Disposition Disposition: Routine/Home Disposition Time: 02:25 Condition: STABLE Instructions: Mood Disorders (ED) Forms: [employer] (Haitian)
[2017-03-10 01:31] LABS: BASO # 0.1 K/uL (0.0-0.2); BASO % 0.9 % (0.0-2.0); EOS % 0.1 % (0.0-4.0); HEMATOCRIT 42.9 % (35.0-51.0); LYMPH # 2.4 K/uL (1.0-4.3); LYMPH % 38.3 % (20.0-40.0); MEAN CELL VOLUME 92.6 fl (80.0-94.0); MEAN CORPUSCULAR HEMOGLOBIN 30.4 pg (27.0-31.0); MEAN CORPUSCULAR HGB CONC 32.9 g/dL (33.0-37.0); MONO # 0.3 K/uL (0.0-0.8); MONO % 5.4 % (0.0-10.0); NEUT # 3.5 K/uL (1.8-7.0); NEUT % 55.3 % (50.0-75.0); NRBC % 0.1 % (0.0-0.0); RED CELL DISTRIBUTION WIDTH 13.4 % (11.5-14.5); WHITE BLOOD COUNT 6.3 K/uL (4.8-10.8)
[2017-03-10 01:41] LABS: ALB/GLOB RATIO 1.4 (1.0-2.1); ALCOHOL SERUM 244 mg/dl (0-10); ALKALINE PHOSPHATASE 37 U/L (38-126); ALT/SGPT 30 U/L (21-72); AST/SGOT 19 U/L (17-59); BILIRUBIN,TOTAL 0.4 mg/dl (0.2-1.3); BLOOD UREA NITROGEN 10 mg/dl (9-20); CALCIUM 9.2 mg/dL (8.4-10.2); CARBON DIOXIDE 26 mmol/L (22-30); CHLORIDE 109 mmol/L (98-107); GFR AFRICAN-AMERICAN > 60; GLUCOSE,RANDOM 89 mg/dL (75-110); POTASSIUM 3.6 MMOL/L (3.6-5.0); SODIUM 146 mmol/l (132-148); TOTAL PROTEIN 8.2 G/DL (6.3-8.2)
[2017-03-10 06:14] VITALS: BP 119/74; PULSE 84; RESP 17; TEMP 98.2
== END 2017-03-10 06:05 | disposition home or self-care (01) ==
LOC: H.ER 00:28
DX: F10.94 Alcohol use, unspecified with alcohol-induced mood disorder (principal); F19.10 Other psychoactive substance abuse, uncomplicated; F31.9 Bipolar disorder, unspecified; F17.200 Nicotine dependence, unspecified, uncomplicated

== ENCOUNTER 2017-05-04 10:33 | Emergency (ER) | payer OTHER, SELFPAY ==
[2017-05-04 10:33] VITALS: BMI 27.1
[2017-05-04 10:38] VITALS: BP 146/85; PULSE 94; RESP 20; TEMP 98.6; O2SAT 98
[2017-05-04] MEDS ORDERED: Oxycodone/Acetaminophen 5/325 mg Tab PO STA (11:27)
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
--- NOTE | 2017-05-04 12:16 | RAD ---
PROCEDURE: Right Foot Radiographs. HISTORY: trauma COMPARISON: None. FINDINGS: BONES: Normal. No fracture. JOINTS: Normal. SOFT TISSUES: Normal. OTHER FINDINGS: None. IMPRESSION: Normal right foot radiographs.
== END 2017-05-04 12:52 | disposition home or self-care (01) ==
LOC: H.ER 10:33
DX: S90.31XA Contusion of right foot, initial encounter (principal); S90.30XA Contusion of unspecified foot, initial encounter; W22.8XXA Striking against or struck by other objects, initial encounter; Y92.89 Other specified places as the place of occurrence of the external cause; F31.9 Bipolar disorder, unspecified

== ENCOUNTER 2017-05-10 03:32 | Emergency (ER) | payer SELFPAY ==
[2017-05-10 03:32] VITALS: BMI 27.1
[2017-05-10 03:54] VITALS: RESP 16; TEMP 98.7; O2SAT 100
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
[2017-05-10 05:56] VITALS: BP 154/98; PULSE 86
== END 2017-05-10 05:58 | disposition home or self-care (01) ==
LOC: H.ER 03:32
DX: K08.89 Other specified disorders of teeth and supporting structures (principal); H92.03 Otalgia, bilateral; F31.9 Bipolar disorder, unspecified

== ENCOUNTER 2017-06-30 22:58 | Emergency (ER) | payer SELFPAY ==
[2017-06-30 22:58] VITALS: BMI 27.1
[2017-06-30 23:06] VITALS: BP 144/95; PULSE 69; RESP 19; TEMP 98.2; O2SAT 98
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
== END 2017-07-01 02:00 ==
LOC: H.ER 22:58
DX: F43.20 Adjustment disorder, unspecified; T73.0XXA Starvation, initial encounter; F31.9 Bipolar disorder, unspecified; F17.210 Nicotine dependence, cigarettes, uncomplicated

== ENCOUNTER 2017-11-25 16:36 | Emergency (ER) | payer MEDICAID, OTHER, SELFPAY ==
[2017-11-25 16:36] VITALS: BMI 27.1
[2017-11-25 16:50] VITALS: BP 124/84; PULSE 86; RESP 18; TEMP 98.3; O2SAT 97
--- NOTE | 2017-11-25 17:30 | ED PDOC ---
HPI: CCC, URI, Sore Throat Time Seen by Provider: 11/25/17 16:50 Chief Complaint (Nursing): Abdominal Pain Chief Complaint (Provider): Nasal Congestion, Cough and Abdominal Pain History Per: Patient History/Exam Limitations: no limitations Onset/Duration Of Symptoms: Days (x1) Current Symptoms Are (Timing): Still Present Associated Symptoms: Cough, Sputum, Nasal Congestion. denies: Nausea, Vomiting , Diarrhea Additional Complaint(s): 27 year old male with no significant past medical history presents to the ED for nasal congestion, cough and headache onset yesterday associated clear sputum and lower abdominal pain. Patient reports he has an appetite but wanted to get checked out before he ate anything. As such, he has not consumed any food today. He denies hemoptysis, fever, chills, diarrhea, constipation, nausea , vomiting, urinary symptoms, sick contacts, travel, or any other medical complaints. PMD: none provided Past Medical History Reviewed: Historical Data, Nursing Documentation, Vital Signs Vital Signs: Last Vital Signs Temp 98.3 F 11/25/17 16:49 Pulse 86 11/25/17 16:49 Resp 18 11/25/17 16:49 BP 124/84 11/25/17 16:49 Pulse Ox 97 11/25/17 17:36 - Medical History PMH: Bipolar Disorder, Depression Denies: Diabetes, Hepatitis, HIV, HTN, Chronic Kidney Disease, Seizures, Sexually Transmitted Disease - Surgical History Surgical History: No Surg Hx - Family History Family History: States: Unknown Family Hx - Social History Current smoker - smoking cessation education provided: Yes (a little over a pack a day ) Ex-Smoker (has not smoked in the last 12 months): No Alcohol: Social Drugs: Denies - Immunization History Hx Tetanus Toxoid Vaccination: No Hx Influenza Vaccination: No Hx Pneumococcal Vaccination: No - Home Medications Home Medications: Ambulatory Orders Medication Instructions Recorded QUEtiapine [Seroquel] 100 mg PO HS #15 tab 11/22/16 Mupirocin 2% Ointment [Bactroban 1 appl TP TID #1 tube 02/02/17 Ointment] Venlafaxine [Effexor-XR] 75 mg PO DAILY 02/02/17 Naproxen [Naprosyn] 500 mg PO BID PRN #14 tab 05/04/17 Amoxicillin 500 mg PO BID #13 tablet 05/10/17 Ibuprofen [Motrin Tab] 1 tab PO Q6 PRN #20 tab 05/10/17 Oxymetazoline 0.05% [Oxymetazoline 2 spray NS Q12 PRN #1 bottle 11/25/17 HCl 30 Ml] - Allergies Allergies/Adverse Reactions: Allergies Allergy/AdvReac Type Severity Reaction Status Date / Time No Known Allergies Allergy Verified 06/30/17 23:06 Review of Systems ROS Statement: Except As Marked, All Systems Reviewed And Found Negative ENT: Positive for: Nose Congestion Respiratory: Positive for: Cough, Sputum (clear) Gastrointestinal: Positive for: Abdominal Pain (lower) Physical Exam - Reviewed Nursing Documentation Reviewed: Yes Vital Signs Reviewed: Yes - Physical Exam Appears: Positive for: Non-toxic, No Acute Distress Skin: Positive for: Warm, Dry Eye Exam: Positive for: EOMI, PERRL ENT: Positive for: Pharynx Is (clear), Other (boggy and erythematous nasal turbinates, no tonsolar erythema ). Negative for: Tonsillar Exudate Neck: Positive for: Painless ROM, Supple Cardiovascular/Chest: Positive for: Regular Rate, Rhythm. Negative for: Murmur Respiratory: Positive for: Normal Breath Sounds. Negative for: Accessory Muscle Use, Rales, Wheezing, Respiratory Distress Gastrointestinal/Abdominal: Positive for: Bowel Sounds (normoactive ), Soft, Tenderness (to palpation in the suprapubic region ), Other (mcburney's point tenderness, negative green's sign ). Negative for: Mass, Guarding, Rebound Back: Positive for: Normal Inspection. Negative for: L CVA Tenderness, R CVA Tenderness Extremity: Positive for: Normal ROM. Negative for: Deformity Lymphatic: Negative for: Adenopathy Neurologic/Psych: Positive for: Alert. Negative for: Motor/Sensory Deficits - ECG O2 Sat by Pulse Oximetry: 97 (RA) Pulse Ox Interpretation: Normal Medical Decision Making Medical Decision Making: Time: 17:12 Initial Impression: URI symptoms with abdominal pain with benign exam Initial Plan: --Obstructive series [RAD] --Bentyl 20 mg PO Obstructive series: NSBGP, no air fluid levels, no free air. Mild constipation. Chest xray demonstrates no infilt or eff DW pt findings and plan of care. Afrin nasal spray, rest, fluids, tobacco cessation, f/u clinic. Scribe Attestation: Documented by Taylor Hanks, acting as a scribe for Lesley Santizo MD Provider Scribe Attestation: All medical record entries made by the Scribe were at my direction and personally dictated by me. I have reviewed the chart and agree that the record accurately reflects my personal performance of the history, physical exam, medical decision making, and the department course for this patient. I have also personally directed, reviewed, and agree with the discharge instructions and disposition. Disposition - Clinical Impression Clinical Impression: Abdominal pain, URI (upper respiratory infection) Counseled Patient/Family Regarding: Studies Performed, Diagnosis, Need For Followup, Rx Given, Smoking Cessation - Disposition Referrals: [facility] [Outside] Disposition: Routine/Home Disposition Time: 17:53 Condition: STABLE Prescriptions: Oxymetazoline 0.05% [Oxymetazoline HCl 30 Ml] 2 spray NS Q12 PRN #1 bottle PRN Reason: Nasal congestion Instructions: Viral Upper Respiratory Infection, Adult (DC), Acute Abdomen ( Belly Pain), Adult (DC), Constipation, Adult (DC), Quitting Smoking for Teens and Young Adults Forms: [facility] ED School/Work Excuse
--- NOTE | 2017-11-25 18:11 | RAD ---
Date of service: 11/25/2017 PROCEDURE: Radiographs of the chest and abdomen (obstructive series) HISTORY: abd pain COMPARISON: No prior. TECHNIQUE: AP radiograph of the chest, with upright and supine radiographs of the abdomen. FINDINGS: CHEST: Lungs: Clear. Cardiovascular: Normal size heart. No pulmonary vascular congestion. Pleura: No pleural fluid. No pneumothorax. Other findings: None. ABDOMEN AND PELVIS: Bowel: Unremarkable bowel gas pattern. No evidence of mechanical obstruction. Free air: None. Bones: Unremarkable. Other findings: None. IMPRESSION: Unremarkable radiographs of chest and abdomen. No evidence of mechanical bowel obstruction. Concordant results with the preliminary interpretation rendered by the emergency department physician procedure.
== END 2017-11-25 18:07 | disposition home or self-care (01) ==
LOC: H.ER 16:36
DX: J06.9 Acute upper respiratory infection, unspecified (principal); F31.9 Bipolar disorder, unspecified; F17.210 Nicotine dependence, cigarettes, uncomplicated; K59.00 Constipation, unspecified

== ENCOUNTER 2018-01-21 03:55 | Emergency (ER) | payer MEDICAID ==
[2018-01-21 03:55] VITALS: BMI 27.1
[2018-01-21 04:13] VITALS: BP 130/89; PULSE 89; RESP 18; TEMP 98.6; O2SAT 98
== END 2018-01-21 04:30 | disposition left against medical advice (07) ==
LOC: H.ER 03:55
DX: Z02.89 Encounter for other administrative examinations (principal)

== ENCOUNTER 2018-02-03 03:34 | Emergency (ER) | payer MEDICAID ==
[2018-02-03 03:35] VITALS: BMI 27.1
[2018-02-03 03:47] VITALS: BP 128/82; PULSE 86; RESP 17; TEMP 98.8; O2SAT 99
[2018-02-03] MEDS ORDERED: Tdap Vaccine 0.5 ml Vial (10-64 yrs) IM ONE ×2 (04:33→04:41)
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
[2018-02-03] MEDS ORDERED: Rabies Immune Globulin 150 INTLU/ML VIAL IM ONE (06:02)
== END 2018-02-03 07:11 | disposition home or self-care (01) ==
LOC: H.ER 03:34
DX: F10.129 Alcohol abuse with intoxication, unspecified (principal); S91.152A Open bite of left great toe without damage to nail, initial encounter; W54.0XXA Bitten by dog, initial encounter; Y92.89 Other specified places as the place of occurrence of the external cause; F31.9 Bipolar disorder, unspecified; Z87.891 Personal history of nicotine dependence